=== PATIENT | male | born 1990 | race Caucasian/White ===

== ENCOUNTER 2021-01-30 06:17 | Emergency (ER) | payer OTHER ==
[~2021-01-30 06:17] MED LIST: DIFLUCAN 100MG100 MG PO; KEFLEX500 MG PO; MICONAZOLE 2% P85 GM TOP
[2021-01-30 08:57] LABS: BASOPHIL 0.4 % (0-2); EOSINOPHIL 0.1 % (0-5); HCT 39.9 % (42.0-52.0); HGB 14.2 g/dl (13.2-18.0); MCH 31.3 pg (25.0-31.0); MCHC 35.6 g/dL (32.0-36.0); MCV 88.1 fL (78.0-100.0); MONOCYTE 8.7 % (0-12); MPV 12.2 fL (6.0-9.5); NEUTROPHIL 72.3 % (41-80); PLT 188 K/uL (150-400); RBC 4.53 M/uL (4.70-6.00); WBC 19.5 K/uL (4.0-10.5)
[2021-01-30 09:15] LABS: NRBC 0
[2021-01-30 09:16] LABS: AMPHETAMINES NEGATIVE (NEGATIVE); BARBITURATES NEGATIVE (NEGATIVE); ECSTASY (MDMA) NEGATIVE (NEGATIVE); MARIJUANA (THC) POSITIVE (NEGATIVE); METHADONE NEGATIVE (NEGATIVE); OPIATES NEGATIVE (NEGATIVE); OXYCODONE NEGATIVE (NEGATIVE)
[2021-01-30 09:32] LABS: ACETAMINOPHEN (TYLENOL) < 2.0 ug/mL (10.0-30.0); ALBUMIN 4.7 g/dL (3.4-5.0); ALKALINE PHOSHATASE 78 U/L (46-116); ALT 78 U/L (16-63); AST 79 U/L (15-37); BILIRUBIN - TOTAL 1.2 mg/dL (0.2-1.0); BUN 26 mg/dL (7-18); BUN/CREAT RATIO (CALC) 28.6 RATIO; CHLORIDE 97 mmol/L (98-107); CO2 (BICARBONATE) 22 mmol/L (21-32); CPK 3592 U/L (39-308); CREATININE 0.91 mg/dL (0.67-1.17); GLOBULIN (CALCULATION) 2.9 g/dL; GLUCOSE 87 mg/dL (74-106); LACTIC ACID 0.8 mmol/L (0.4-1.9); POTASSIUM 3.7 mmol/L (3.5-5.1); TOTAL PROTEIN 7.6 g/dL (6.4-8.2)
== END 2021-01-30 08:56 | disposition home or self-care (01) ==
LOC: FER 06:17
PROVIDERS: Emergency Medicine Emergency Medical Services
DX: F29 Unspecified psychosis not due to a substance or known physiological condition (principal); F17.210 Nicotine dependence, cigarettes, uncomplicated
CPT/HCPCS: 36415; 80053; 80305; 82550; 83605; 84484; 85025; 93005; G0480